=== PATIENT | female | born 1975 | race Caucasian/White ===

== ENCOUNTER 2017-05-21 18:21 | Emergency (ER) | payer MEDICAID, OTHER ==
[~2017-05-21] VITALS: Wt 136.5 kg
[~2017-05-21 18:21] MED LIST: FURO-109 PO
--- NOTE | 2017-05-21 19:31 | ERD ---
ER Documentation Chief Complaint Date/Time DATE: 05/21/17 TIME: 19:26 Chief Complaint SWELLING ON LOWER EXT X1 YEAR, HPI 41-year-old female presents to emergency department for complaints of bilateral lower extremity swelling for one year now, stated that the swelling got worse today. Patient denies any medical problems. Patient denies any trauma no extremity. Patient denies any redness. Patient denies any fever or chills. Patient does verbalize that she usually sits down for long periods of time in the office daily. Patient denies any numbness or tingling. ROS All systems reviewed and are negative except as per history of present illness. Medications Home Meds Active Scripts Furosemide* (Lasix*) 40 Mg Tablet, 40 MG PO DAILY, #10 TAB Prov:JULIO WARNER MD 03/13/16 Allergies Allergies: Coded Allergies: Penicillins (Verified Allergy, Mild, 05/21/17) PMhx/Soc History of Surgery: Yes (tubal ligation X17 years ago) Anesthesia Reaction: No Hx Neurological Disorder: No Hx Respiratory Disorders: No Hx Cardiac Disorders: No Hx Psychiatric Problems: No Hx Miscellaneous Medical Probl: No Hx Alcohol Use: No Hx Substance Use: No Hx Tobacco Use: Yes Smoking Status: Never smoker FmHx Family History: No coronary disease, No diabetes, No other Physical Exam Vitals Vital Signs Date Time Temp Pulse Resp B/P Pulse Ox O2 Delivery O2 Flow Rate FiO2 05/21/17 18:26 98.8 107 17 146/82 97 Physical Exam GENERAL: The patient is well developed and appropriate for usual state of health, in no apparent distress. CHEST: Clear to auscultation bilaterally. There are no rales, wheezes or rhonchi. HEART: Regular rate and rhythm. No murmurs, clicks, rubs or gallops. No S3 or S4. ABDOMEN: Soft, nontender and nondistended. Good bowel sounds. No rebound or guarding. No gross peritonitis. No gross organomegaly or masses. No Chaparro sign or McBurney point tenderness. BACK: No midline or flank tenderness. EXTREMITIES:Noted swelling in bilateral lower extremities, with +1 pitting edema. No redness noted. Noted laceration and dryness of the skin on the also bilateral foot. Equal pulses bilaterally. Grossly neurovascularly intact. NEURO: Alert and oriented. Cranial nerves 2-12 intact. Motor strength in all 4 extremities with 5/5 strength. Sensation grossly intact. Normal speech and gait. SKIN: There is no apparent rash or petechia. The skin is warm and dry. HEMATOLOGIC AND LYMPHATIC: There is no evidence of excessive bruising or lymphedema. No gross cervical, axillary, or inguinal lymphadenopathy. Result Diagram: 05/21/17199905/21/171999 Results 24 hrs Laboratory Tests Test 05/21/17 20:00 White Blood Count 11.610^3/ul Red Blood Count 5.0010^6/ul Hemoglobin 11.9g/dl Hematocrit 40.2% Mean Corpuscular Volume 80.4fl Mean Corpuscular Hemoglobin 23.8pg Mean Corpuscular Hemoglobin Concent 29.6g/dl Red Cell Distribution Width 16.1% Platelet Count 73476^3/UL Mean Platelet Volume 12.2fl Neutrophils % 60.8% Lymphocytes % 27.6% Monocytes % 6.7% Eosinophils % 3.5% Basophils % 0.9% Nucleated Red Blood Cells % 0.0/100WBC Neutrophils # 7.010^3/ul Lymphocytes # 3.210^3/ul Monocytes # 0.810^3/ul Eosinophils # 0.410^3/ul Basophils # 0.110^3/ul Nucleated Red Blood Cells # 0.010^3/ul Sodium Level 140mmol/L Potassium Level 3.9mmol/L Chloride Level 104mmol/L Carbon Dioxide Level 28mmol/L Anion Gap 12 Blood Urea Nitrogen 16mg/dl Creatinine 0.79mg/dl Glucose Level 86mg/dl Calcium Level 8.9mg/dl Total Bilirubin 0.0mg/dl Direct Bilirubin 0.00mg/dl Indirect Bilirubin 0.0mg/dl Aspartate Amino Transf (AST/SGOT) 30IU/L Alanine Aminotransferase (ALT/SGPT) 30IU/L Alkaline Phosphatase 78IU/L Total Protein 7.6g/dl Albumin 4.0g/dl Globulin 3.60g/dl Albumin/Globulin Ratio 1.11 PROCEDURE: US venous lower extremities bilaterally. CLINICAL INDICATION: Bilateral lower extremity swelling. TECHNIQUE: Sonographic evaluation of the lower extremities with compression, augmentation, and color Doppler imaging was performed. COMPARISON: Exam dated 04/14/2014. FINDINGS: Right lower extremity: Common femoral vein: Normal flow. Compressible and augmentable. Proximal superficial femoral vein: Normal flow. Compressible and augmentable. Mid superficial femoral vein: Normal flow. Compressible and augmentable. Distal superficial femoral vein: Normal flow. Compressible and augmentable. Popliteal vein: Normal flow. Compressible and augmentable. Calf veins: Normal flow. There is an anechoic focus the right popliteal fossa measuring 6.3 x 3 cm. Left lower extremity: Common femoral vein: Normal flow. Compressible and augmentable. Proximal superficial femoral vein: Normal flow. Compressible and augmentable. Mid superficial femoral vein: Normal flow. Compressible and augmentable. Distal superficial femoral vein: Normal flow. Compressible and augmentable. Popliteal vein: Normal flow. Compressible and augmentable. Calf veins: Normal flow. IMPRESSION: 1. No evidence of deep vein thrombosis in the lower extremities bilaterally. 2. Right popliteal cyst measuring 6.3 x 3 cm. RPTAT: [facility] .Larry Luna MD, Date Time Electronically viewed and signed by .Larry Luna MD, MD on 05/21/2017 20:00 .P/ CC: [facility] L[facility] Procedures/MDM Medical Decision Making: Patient's lower leg swelling nonspecific at this time, was likely from dependent edema. No DVT noted in the ultrasound, liver function tests are normal, and kidney function test are normal, no symptoms of respiratory distress or chest pain, low suspicion for CHF. There is no suspicion for neurovascular compromise. Patient has intact sensation and circulation of the affected extremity. There is low suspicion for septic arthritis. Patient does not have any fever. Disposition: Home. Patient is given prescription for ibuprofen for pain. [place] for severe pain, 1 week course of Lasix. Patient was advised to elevate the affected area. Patient was advised that if symptoms are worse, numbness, tingling, high fever, unable to move joint, worsening symptoms, to return to emergency department immediately. Otherwise, patient is advised to follow up with the primary care doctor in 5-7 days for reevaluation of symptoms. Departure Diagnosis: Primary Impression: Peripheral edema Condition: Stable Patient Instructions: Peripheral Edema, Bilateral Additional Instructions: Patient is given prescription for ibuprofen for pain. [place] for severe pain, 1 week course of Lasix. Patient was advised to elevate the affected area. Patient was advised that if symptoms are worse, numbness, tingling, high fever, unable to move joint, worsening symptoms, to return to emergency department immediately. Otherwise, patient is advised to follow up with the primary care doctor in 5-7 days for reevaluation of symptoms. ILGIA FRANCISCO NP May 21, 2017 19:31
--- NOTE | 2017-05-21 20:00 | RADRPT ---
PROCEDURE: US venous lower extremities bilaterally. CLINICAL INDICATION: Bilateral lower extremity swelling. TECHNIQUE: Sonographic evaluation of the lower extremities with compression, augmentation, and colo r Doppler imaging was performed. COMPARISON: Exam dated 04/14/2014. FINDINGS: Right lower extremity: Common femoral vein: Normal flow. Compressible and augmentable. Proximal superficial femoral vein: Normal flow. Compressible and augmentable. Mid superficial femoral vein: Normal flow. Compressible and augmentable. Distal superficial femoral vein: Normal flow. Compressible and augmentable. Popliteal vein: Normal flow. Compressible and augmentable. Calf veins: Normal flow. There is an anechoic focus the right popliteal fossa measuring 6.3 x 3 cm. Left lower extremity: Common femoral vein: Normal flow. Compressible and augmentable. Proximal superficial femoral vein: Normal flow. Compressible and augmentable. Mid superficial femoral vein: Normal flow. Compressible and augmentable. Distal superficial femoral vein: Normal flow. Compressible and augmentable. Popliteal vein: Normal flow. Compressible and augmentable. Calf veins: Normal flow. IMPRESSION: 1. No evidence of deep vein thrombosis in the lower extremities bilaterally. 2. Right popliteal cyst measuring 6.3 x 3 cm. RPTAT: HLBP .Larry Luna MD, Date Time Electronically viewed and signed by .Larry Luna MD, MD on 05/21/2017 20:00 .P/
[2017-05-21 20:52] LABS: BASOPHIL # 0.1 10^3/ul (0.0-0.1); BASOPHILS % 0.9 % (0.0-2.0); EOSINOPHILS # 0.4 10^3/ul (0.0-0.5); EOSINOPHILS % 3.5 % (0.0-7.0); HEMATOCRIT 40.2 % (37.0-47.0); HEMOGLOBIN 11.9 g/dl (12.0-16.0); LYMPHOCYTES # 3.2 10^3/ul (0.8-2.9); LYMPHOCYTES % 27.6 % (15.0-51.0); MEAN CORPUSCULAR HEMOGLOBIN 23.8 pg (29.0-33.0); MEAN CORPUSCULAR HGB CONC 29.6 g/dl (32.0-37.0); MEAN CORPUSCULAR VOLUME 80.4 fl (82.0-101.0); MEAN PLATELET VOLUME 12.2 fl (7.4-10.4); MONOCYTE # 0.8 10^3/ul (0.3-0.9); MONOCYTES % 6.7 % (0.0-11.0); NEUTROPHILS % 60.8 % (39.0-77.0); PLATELET COUNT 334 10^3/UL (140-415); RED CELL DISTRIBUTION WIDTH 16.1 % (11.5-14.5); WHITE BLOOD COUNT 11.6 10^3/ul (4.8-10.8)
[2017-05-21 20:58] LABS: ALBUMIN/GLOBULIN RATIO 1.11; CALCIUM 8.9 mg/dl (8.4-10.2); CREATININE 0.79 mg/dl (0.44-1.00); POTASSIUM 3.9 mmol/L (3.5-5.1); TOTAL PROTEIN 7.6 g/dl (6.1-8.1)
[2017-05-21] MEDS ORDERED: HYDR-906 PO (21:28)
[2017-05-21] MEDS ORDERED: FURO-110 PO (21:28)
[2017-05-21] MEDS ORDERED: IBUP400T22 PO (21:28)
[2017-05-21] MEDS ORDERED: CLOT30CR24 TOP (21:32)
[2017-05-21 21:54] VITALS: BP 130/78; PULSE 77; RESP 18; TEMP 98.8
== END 2017-05-21 21:55 | disposition home or self-care (01) ==
LOC: FTE 18:21
DX: R60.0 Localized edema (principal)
CPT/HCPCS: 80053; 85025; 93970; Z7502

== ENCOUNTER 2017-06-23 19:58 | Emergency (ER) | payer MEDICAID ==
[~2017-06-23] VITALS: Ht 157.5 cm; Wt 138.0 kg
[~2017-06-23 19:58] MED LIST changes: +CLOT30CR24 TOP; +FURO-110 PO; +HYDR-906 PO; +IBUP400T22 PO
[2017-06-23 20:41] VITALS: Ht 157.5 cm; Wt 138.0 kg
[2017-06-23 23:54] VITALS: TEMP 99
--- NOTE | 2017-06-23 23:58 | RADRPT ---
PROCEDURE: XR Chest. CLINICAL INDICATION: Dyspnea and sepsis TECHNIQUE: AP Portable chest. COMPARISON: 03/13/2016 chest x-ray FINDINGS: The soft tissues and bones are remarkable for bilateral acromioclavicular osteoarthropathy. No focal infiltrates, masses or effusions are present. The mediastinum demonstrates early vascular calcifica tions of the thoracic aorta and mild cardiomegaly. No pneumothorax is present. IMPRESSION: 1. No radiographic evidence for acute cardiopulmonary disease 2. Mild cardiomegaly and atherosclerotic vascular disease RPTAT: [facility]DC .Sandra Gastelum MD, Date Time Electronically viewed and signed by .Sandra Gastelum MD, on 06/23/2017 23:57 .C/
[2017-06-24] MEDS ORDERED: IPRATROPIUM (NEB) 0.5 MG/2.5 ML AMP NEB STA (00:12)
[2017-06-24] MEDS ORDERED: ALBUTEROL 0.083% (NEB) 2.5 MG/3 ML AMP NEB STA (00:12)
[2017-06-24 00:33] LABS: BASOPHIL # 0.1 10^3/ul (0.0-0.1); BASOPHILS % 0.8 % (0.0-2.0); EOSINOPHILS # 0.6 10^3/ul (0.0-0.5); EOSINOPHILS % 5.3 % (0.0-7.0); HEMATOCRIT 37.4 % (37.0-47.0); LYMPHOCYTES # 2.9 10^3/ul (0.8-2.9); MEAN CORPUSCULAR HEMOGLOBIN 24.2 pg (29.0-33.0); MEAN CORPUSCULAR HGB CONC 29.4 g/dl (32.0-37.0); MEAN CORPUSCULAR VOLUME 82.2 fl (82.0-101.0); MONOCYTE # 0.7 10^3/ul (0.3-0.9); MONOCYTES % 6.9 % (0.0-11.0); NEUTROPHIL # 6.2 10^3/ul (1.6-7.5); NEUTROPHILS % 58.7 % (39.0-77.0); PLATELET COUNT 276 10^3/UL (140-415); RED BLOOD COUNT 4.55 10^6/ul (4.20-5.40); RED CELL DISTRIBUTION WIDTH 15.8 % (11.5-14.5); WHITE BLOOD COUNT 10.5 10^3/ul (4.8-10.8)
[2017-06-24 00:56] LABS: ALANINE AMINOTRANSFERASE 29 IU/L (13-69); ALBUMIN 3.3 g/dl (3.3-4.9); ALBUMIN/GLOBULIN RATIO 0.94; ALKALINE PHOSPHATASE 58 IU/L (42-121); ANION GAP 12 (8-16); ASPARTATE AMINO TRANSFERASE 14 IU/L (15-46); BILIRUBIN,INDIRECT 0.1 mg/dl (0-1.1); BILIRUBIN,TOTAL 0.1 mg/dl (0.2-1.3); BLOOD UREA NITROGEN 20 mg/dl (7-20); CALCIUM 8.9 mg/dl (8.4-10.2); CARBON DIOXIDE 30 mmol/L (21-31); CHLORIDE 104 mmol/L (97-110); CREATININE 0.83 mg/dl (0.44-1.00); GLUCOSE 82 mg/dl (70-220); SODIUM 142 mmol/L (135-144); TOTAL PROTEIN 6.8 g/dl (6.1-8.1)
[2017-06-24 01:07] LABS: TROPONIN-I < 0.012 ng/ml (0.00-0.12)
[2017-06-24 01:16] VITALS: BP 127/73; PULSE 82; RESP 17
--- NOTE | 2017-06-24 01:37 | ERD ---
ER Documentation Chief Complaint Date/Time DATE: 06/24/17 TIME: 01:37 Chief Complaint chest congestion and sob and bilateral feet swelling HPI 41-year-old female with no significant medical history presenting with complaints of shortness of breath. She has felt some congestion in her chest for the past 4 days associated with shortness of breath. She does wake up at night short of breath occasionally. She complains of leg swelling but this has been chronic for her. She has been taking Lasix intermittently for this but drinking a lot of water as well. She denies any calf pain or any unilateral leg pain. No associated chest pain, fever, chills, nausea, vomiting, or dizziness. No recent surgeries. No recent immobilization. No history of blood clots. ROS All systems reviewed and are negative except as per history of present illness. Medications Home Meds Active Scripts Albuterol Sulfate* (Proair HFA*) 8.5 Gm Hfa.aer.ad, 2 PUFF INH Q4H Y for WHEEZING AND SOB, #1 INHALER Prov:KOFI BRIONES MD 06/24/17 Clotrimazole* (Clotrimazole* AF) 1% - 30 Gm Cream.gm., 1 APPLIC TOP BID for 7 Days, TUB Prov:LIGIA FRANCISCO NP 05/21/17 Furosemide* (Lasix*) 20 Mg Tablet, 20 MG PO DAILY, #7 TAB Prov:LIGIA FRANCISCO NP 05/21/17 Hydrocodone/Acetaminophen ([place] 5-325 Tablet) 1 Each Tablet, 1 TAB PO Q6H Y for SEVERE PAIN LEVEL 7-10, #20 TAB Prov:LIGIA FRANCISCO NP 05/21/17 Ibuprofen* (Motrin*) 400 Mg Tab, 400 MG PO Q6H Y for PAIN AND OR ELEVATED TEMP, #30 TAB Prov:LIGIA FRANCISCO NP 05/21/17 Furosemide* (Lasix*) 40 Mg Tablet, 40 MG PO DAILY, #10 TAB Prov:JULIO WARNER MD 03/13/16 Allergies Allergies: Coded Allergies: Penicillins (Verified Allergy, Mild, 05/21/17) PMhx/Soc History of Surgery: Yes (tubal ligation) Anesthesia Reaction: No Hx Neurological Disorder: No Hx Respiratory Disorders: No Hx Cardiac Disorders: No Hx Psychiatric Problems: No Hx Miscellaneous Medical Probl: No Hx Alcohol Use: No Hx Substance Use: No Hx Tobacco Use: Yes Smoking Status: Current every day smoker FmHx Family History: diabetes (Mother) Physical Exam Vitals Vital Signs Date Time Temp Pulse Resp B/P Pulse Ox O2 Delivery O2 Flow Rate FiO2 06/24/17 00:29 85 20 99 21 06/23/17 23:54 99.0 92 18 126/80 98 Room Air 06/23/17 23:54 0 06/23/17 20:41 99.3 104 20 139/71 100 Physical Exam Const: Well-appearing, no apparent distress, no respiratory distress, nontoxic Head: Atraumatic Eyes: Normal Conjunctiva ENT: Normal External Ears, Nose and Mouth. Neck: Full range of motion..~ No meningismus.No JVD Resp: Diffuse expiratory wheezing Cardio: Regular rate and rhythm, no murmurs Abd: Soft, non tender, non distended. Normal bowel sounds Skin: No petechiae or rashes Back: No midline or flank tenderness Ext: Bilateral lower extremity nonpitting edema, no calf tenderness, negative Homans sign Neur: Awake and alert Psych: Normal Mood and Affect Result Diagram: 06/23/17 2341 06/23/17 2341 Results 24 hrs Laboratory Tests Test 06/23/17 23:41 White Blood Count 10.510^3/ul Red Blood Count 4.5510^6/ul Hemoglobin 11.0g/dl Hematocrit 37.4% Mean Corpuscular Volume 82.2fl Mean Corpuscular Hemoglobin 24.2pg Mean Corpuscular Hemoglobin Concent 29.4g/dl Red Cell Distribution Width 15.8% Platelet Count 18964^3/UL Mean Platelet Volume 12.0fl Neutrophils % 58.7% Lymphocytes % 28.0% Monocytes % 6.9% Eosinophils % 5.3% Basophils % 0.8% Nucleated Red Blood Cells % 0.0/100WBC Neutrophils # 6.210^3/ul Lymphocytes # 2.910^3/ul Monocytes # 0.710^3/ul Eosinophils # 0.610^3/ul Basophils # 0.110^3/ul Nucleated Red Blood Cells # 0.010^3/ul Sodium Level 142mmol/L Potassium Level 4.0mmol/L Chloride Level 104mmol/L Carbon Dioxide Level 30mmol/L Anion Gap 12 Blood Urea Nitrogen 20mg/dl Creatinine 0.83mg/dl Glucose Level 82mg/dl Lactic Acid Level 1.2mmol/L Calcium Level 8.9mg/dl Total Bilirubin 0.1mg/dl Direct Bilirubin 0.00mg/dl Indirect Bilirubin 0.1mg/dl Aspartate Amino Transf (AST/SGOT) 14IU/L Alanine Aminotransferase (ALT/SGPT) 29IU/L Alkaline Phosphatase 58IU/L Troponin I < 0.012ng/ml B-Type Natriuretic Peptide 49PG/ML Total Protein 6.8g/dl Albumin 3.3g/dl Globulin 3.50g/dl Albumin/Globulin Ratio 0.94 Current Medications Medications (Trade) Dose Ordered Sig/Sharmaine Route PRN Reason Start Time Stop Time Status Last Admin Dose Admin Albuterol (Proventil 0.083% (Neb)) 5 mg ONCE STAT NEB 06/24/17 00:12 06/24/17 00:14 DC 06/24/17 00:24 Ipratropium [place] (Atrovent 0.02% (Neb)) 0.5 mg ONCE STAT NEB 06/24/17 00:12 06/24/17 00:14 DC 06/24/17 00:25 Procedures/MDM EKG: Rate/Rhythm: Normal Sinus Rhythm QRS, ST, T-waves: No changes consistent w/ acute ischemia Impression: No evidence of ischemia or arrhythmia Chest Xray: IMPRESSION: 1. No radiographic evidence for acute cardiopulmonary disease 2. Mild cardiomegaly and atherosclerotic vascular disease RPTAT: [facility] .Sandra Gastelum MD, Date Time Electronically viewed and signed by .Sandra Gastelum MD, MD on 06/23/2017 23: 57 Labs: CBC: anemia BMP: unremarkable BNP: wnl lactate: wnl Trop: wnl [facility] Patient is presenting with shortness of breath. Vitals were all within normal limits and there is no evidence of respiratory failure. Patient was treated with albuterol with significant improvement in her wheezing and her symptoms. Workup is not suggestive of heart failure, acute coronary syndrome, Sepsis,or pneumonia. Her symptoms are likely secondary bronchitis, likely viral in etiology. I have a low suspicion for pulmonary embolism.Patient will be discharged with a prescription for albuterol inhaler. Return precautions were given. Smoking Cessation Therapy: Pt. was lectured for greater than 3 minutes on the health risks of continued smoking and the benefits of cessation. Departure Diagnosis: Primary Impression: Bronchitis Condition: Stable KOFI BRIONES MD Jun 24, 2017 01:37
[2017-06-24] MEDS ORDERED: ALBU8.5H3 INH (01:38)
== END 2017-06-24 01:48 | disposition home or self-care (01) ==
LOC: E/R 19:58
DX: J20.9 Acute bronchitis, unspecified (principal); F17.210 Nicotine dependence, cigarettes, uncomplicated
CPT/HCPCS: 36415; 71010; 80053; 83605; 83880; 84484; 85025; 87040; 94664; Z7502; Z7610

== ENCOUNTER 2017-08-15 18:47 | Emergency (ER) | payer SELFPAY ==
[~2017-08-15] VITALS: Ht 167.6 cm; Wt 141.7 kg
[~2017-08-15 18:47] MED LIST changes: +ALBU8.5H3 INH
[2017-08-15 18:51] VITALS: Ht 167.6 cm; Wt 141.7 kg
== END 2017-08-15 21:09 | disposition left against medical advice (07) ==
LOC: E/R 18:47
DX: Z53.21 Procedure and treatment not carried out due to patient leaving prior to being seen by health care provider (principal)

== ENCOUNTER 2018-01-01 18:56 | Emergency (ER) | END 2018-01-01 22:35 | disposition home or self-care (01) ==

== ENCOUNTER 2018-03-02 18:14 | Emergency (ER) | END 2018-03-02 21:32 | disposition home or self-care (01) ==

== ENCOUNTER 2018-04-26 16:14 | Emergency (ER) | END 2018-04-26 22:30 | disposition home or self-care (01) ==

== ENCOUNTER 2018-11-26 18:46 | Emergency (ER) | payer SELFPAY ==
[~2018-11-26] VITALS: Ht 162.6 cm; Wt 160.3 kg
[~2018-11-26 18:46] MED LIST changes: -ALBU8.5H3 INH; +BUME0.5T PO; -CLOT30CR24 TOP; -FURO-109 PO; -FURO-110 PO; +HYDR-842 PO; -HYDR-906 PO; -IBUP400T22 PO
[2018-11-26 19:23] VITALS: Ht 162.6 cm; Wt 160.3 kg
[2018-11-26] MEDS ORDERED: FUROSEMIDE 20 MG TAB PO ONE (21:00)
[2018-11-26] MEDS ORDERED: FURO-109 PO (21:29)
--- NOTE | 2018-11-26 21:31 | ERD ---
ER Documentation Chief Complaint Chief Complaint C/O OMAR LEG SWELLING X5 MOTHS, SOB WORSE W/ EXERTION, RT ARM PAIN HPI Patient is a 43-year-old female with no medical problems who presents with bilateral leg swelling. She has shortness of breath as well that is worse at night. She said that she has been dealing with this for the past 6 months. It was worse today so she came to the ER. She is speaking full sentences. She has a cough as well. She stopped her hydrochlorothiazide 3-4 months ago because it was making her pee too much. Upon review of old medical record the patient has multiple visits to the ER for various complaints. She does not currently have a primary doctor. ROS All systems reviewed and are negative except as per history of present illness. Medications Home Meds Active Scripts Furosemide* (Lasix*) 40 Mg Tablet, 40 MG PO DAILY, #20 TAB Prov:MONTY CACERES MD 11/26/18 Discontinued Scripts Bumetanide* (Bumetanide*) 0.5 Mg Tablet, 0.5 MG PO DAILY, #7 TAB Prov:RAÚL RENEE DO 04/26/18 Hydroxyzine Hcl* (Atarax*) 25 Mg Tab, 25 MG PO Q6H PRN for ITCHING, #14 TAB Prov:RAÚL RENEE DO 04/26/18 Allergies Allergies: Coded Allergies: Penicillins (Verified Allergy, Mild, 11/26/18) PMhx/Soc Medical and Surgical Hx: pt denies Medical Hx History of Surgery: No (TUBAL LIGATION 1997) Anesthesia Reaction: No Hx Neurological Disorder: No Hx Respiratory Disorders: No Hx Cardiac Disorders: No Hx Psychiatric Problems: No Hx Miscellaneous Medical Probl: No Hx Alcohol Use: No Hx Substance Use: No Hx Tobacco Use: Yes (4-5 CIGARETTES PER DAY) Smoking Status: Current every day smoker FmHx Family History: diabetes Physical Exam Vitals Vital Signs Date Temp Pulse Resp B/P (MAP) Pulse Ox O2 O2 Flow FiO2 Time Delivery Rate 11/26/18 83 18 122/58 100 Room Air 21:41 (79) 11/26/18 96 20 126/87 100 Room Air 20:45 (100) 11/26/18 99.1 90 19 176/90 96 19:23 (118) Physical Exam Const: No acute distress Head: Atraumatic Eyes: Normal Conjunctiva ENT: Normal External Ears, Nose and Mouth. Neck: Full range of motion. No meningismus. Resp: Clear to auscultation bilaterally Cardio: Regular rate and rhythm, no murmurs Abd: Soft, non tender, non distended. Normal bowel sounds Skin: No petechiae or rashes Back: No midline or flank tenderness Ext: 1+ pitting edema bilaterally Neur: Awake and alert Psych: Normal Mood and Affect Results 24 hrs Current Medications Medications Dose Sig/Sharmaine Start Time Status Last (Trade) Ordered Route PRN Stop Time Admin Dose Reason Admin Furosemide 40 mg ONCE ONCE 11/26/18 DC 11/26/18 (Lasix) PO 21:00 21:11 11/26/18 21:01 Procedures/MDM EKG read by me: Rate/Rhythm: Regular rate and rhythm at a rate of 85 Intervals: Normal Impression: No evidence of ischemia or arrhythmia Chest x-ray shows cardiomegaly per radiology. Smoking Cessation Therapy: Pt. was lectured for greater than 3 minutes on the health risks of continued smoking and the benefits of cessation. Patient is a 43-year-old female presents with bilateral leg swelling. The patient was well-appearing in the emergency department and is in no distress. I do not believe patient requires further workup or admission to the hospital. I do believe that given her obesity that there is cardiomegaly and fluid overload because of that. The patient was given Lasix in the emergency department and will be given a prescription for Lasix which will help her symptoms. However she does need to get a primary doctor and I have given her information for the local clinics. She should follow-up within 1 week. Departure Diagnosis: Primary Impression: Edema Edema type: unspecified Qualified Codes: R60.9 - Edema, unspecified Condition: Fair Patient Instructions: Peripheral Edema, Bilateral Referrals: [facility] YOU HAVE RECEIVED A MEDICAL SCREENING EXAM AND THE RESULTS INDICATE THAT YOU DO NOT HAVE A CONDITION THAT REQUIRES URGENT TREATMENT IN THE EMERGENCY DEPARTMENT. FURTHER EVALUATION AND TREATMENT OF YOUR CONDITION CAN WAIT UNTIL YOU ARE SEEN IN YOUR DOCTORS OFFICE WITHIN THE NEXT 1-2 DAYS. IT IS YOUR RESPONSIBILITY TO MAKE AN APPOINTMENT FOR FOLOW-UP CARE. IF YOU HAVE A PRIMARY DOCTOR --you should call your primary doctor and schedule an appointment IF YOU DO NOT HAVE A PRIMARY DOCTOR YOU CAN CALL OUR PHYSICIAN REFERRAL HOTLINE AT IF YOU CAN NOT AFFORD TO SEE A PHYSICIAN YOU CAN CHOSE FROM THE FOLLOWING [facility] [address] [facility] [address] [facility] [address] [facility] [address] [facility] [facility] [address] [facility]. [facility] [address] Additional Instructions: Call your primary care doctor TOMORROW for an appointment during the next 1 WEEK.Tell the area secretary that you were referred from this facility.See the doctor sooner or return here if your condition worsens before your appointment time. MONTY CACERES MD Nov 26, 2018 21:31
[2018-11-26 21:41] VITALS: BP 122/58; PULSE 83; RESP 18
== END 2018-11-26 21:41 | disposition home or self-care (01) ==
LOC: E/R 18:46
DX: M79.89 Other specified soft tissue disorders (principal); F17.210 Nicotine dependence, cigarettes, uncomplicated
CPT/HCPCS: 71045; 93005

== ENCOUNTER 2018-12-25 11:07 | Inpatient (IN) | payer MEDICAID ==
[~2018-12-25] VITALS: Ht 162.6 cm; Wt 162.0 kg
[~2018-12-25 11:07] MED LIST changes: -BUME0.5T PO; +FURO-109 PO; -HYDR-842 PO
[2018-12-25] MEDS ORDERED: ADENOSINE 2 ML ONE ×2 (11:29→11:37)
[2018-12-25] MEDS: ADENOSINE 6 MG INJ IV STA ×2 (11:30→11:59)
[2018-12-25] MEDS ORDERED: ASPIRIN 325 MG TAB PO STA (11:43)
[2018-12-25] MEDS ORDERED: ADENOSINE 6 MG INJ IV STA (11:43)
[2018-12-25] MEDS ORDERED: IOHEXOL 100 ML ONE (12:53)
[2018-12-25] MEDS ORDERED: SOD CHLORIDE 0.9% 100 ML ONE (12:53)
[2018-12-25] MEDS ORDERED: IOHEXOL 350MG/ML 50 ML BTL ONE (12:54)
[2018-12-25] MEDS ORDERED: ONDANSETRON 4 MG INJ IV PRN ×2 (13:30→15:00)
[2018-12-25] MEDS ORDERED: ACETAMINOPHEN 325 MG TAB PO PRN ×2 (13:30→15:00)
--- NOTE | 2018-12-25 14:17 | ERD ---
ER Documentation Chief Complaint Chief Complaint BILATERAL LEG SWELLING WITH PALPITATION HPI This a very pleasant 43-year-old female who presented to the emergency department with a sudden onset of palpitations that occurred just prior to arrival. The patient indicates she does not have any underlying past medical history. She does state that she believes she has sleep apnea she is been falling asleep during the day specifically at work. She also indicates that for the past several weeks she has been experiencing shortness of breath with exertion and swelling of her bilateral lower extremities. The patient indicated she was at work today when she developed the palpitations became very drowsy. Her boss instructed her to come to the emergency department to be further evaluated. She states she has a strong family history of disease as her mother of a brain aneurysm and heart failure in her early 50s. The patient does smoke tobacco but she states she smokes roughly 1 pack every 4 days. She denies any recent travel. She denies any calf tenderness. She denies a headache or changes in vision. ROS All systems reviewed and are negative except as per history of present illness. Medications Home Meds Discontinued Scripts Furosemide* (Lasix*) 40 Mg Tablet, 40 MG PO DAILY, #20 TAB Prov:MONTY CACERES MD 11/26/18 Allergies Allergies: Coded Allergies: Penicillins (Verified Allergy, Mild, 12/25/18) PMhx/Soc History of Surgery: No (TUBAL LIGATION 1997) Anesthesia Reaction: No Hx Neurological Disorder: No Hx Respiratory Disorders: No Hx Cardiac Disorders: No Hx Psychiatric Problems: No Hx Miscellaneous Medical Probl: No Hx Alcohol Use: No Hx Substance Use: No Hx Tobacco Use: Yes (4-5 CIGARETTES PER DAY) Smoking Status: Current some day smoker Physical Exam Vitals Vital Signs Date Temp Pulse Resp B/P (MAP) Pulse Ox O2 O2 Flow FiO2 Time Delivery Rate 12/25/18 110 18 110/72 98 Room Air 12:15 (85) 12/25/18 100 18 162/70 98 Room Air 12:00 (100) 12/25/18 169 18 133/102 98 Room Air 11:45 (112) 12/25/18 175 18 151/107 98 Room Air 11:20 (122) 12/25/18 98.1 174 18 114/65 97 11:09 (81) Physical Exam Constitutional:Well-developed. Well-nourished. HEENT:Normocephalic. Atraumatic.Pupils were equal round reactive to light. Moist mucous membranes.No tonsillar exudates. Neck: No nuchal rigidity. No lymphadenopathy. No posterior cervical spine tenderness or step-offs. Respiratory: Not using accessory muscles of respiration.Lungs were clear to auscultation bilaterally. No rhonchi. No rales. No wheezing. Cardiovascular: Tachycardic with regular rhythm.No murmurs. No rubs were appreciated.S1, S2 normal. Distal pulses are palpable 2+ bilaterally. GI: Abdomen was obese so exam is limited due to body habitus nontender. Non Distended. No pulsatile abdominal masses or bruits. No rebound. No guarding. Bowel sounds were present and normal. Muscle skeletal: Full range of motion of both the upper and lower extremities bilaterally.Normal muscle tone.No assymetrical calf tenderness or swelling however patient had 2+ pitting edema the bilateral lower extremity's. Skin: No petechia, no purpura. No lesions on the palms or the soles of the feet. No maculopapular rash. NEURO: Patient was alert, awake, orientated x3.No facial droop. Gait observed and normal with no ataxia.Speech had regular rate and rhythm. No focal neurological deficits. Result Diagram: 12/25/18 1130 12/25/18 1130 Results 24 hrs Laboratory Tests Test 12/25/18 11:30 12/25/18 12:19 White Blood Count 9.4 10^3/ul Red Blood Count 5.11 10^6/ul Hemoglobin 12.2 g/dl Hematocrit 42.0 % Mean Corpuscular Volume 82.2 fl Mean Corpuscular Hemoglobin 23.9 pg Mean Corpuscular Hemoglobin Concent 29.0 g/dl Red Cell Distribution Width 15.7 % Platelet Count 270 10^3/UL Mean Platelet Volume 11.7 fl Immature Granulocytes % 0.600 % Neutrophils % 58.8 % Lymphocytes % 29.5 % Monocytes % 8.5 % Eosinophils % 1.9 % Basophils % 0.7 % Nucleated Red Blood Cells % 0.0 /100WBC Immature Granulocytes # 0.060 10^3/ul Neutrophils # 5.5 10^3/ul Lymphocytes # 2.8 10^3/ul Monocytes # 0.8 10^3/ul Eosinophils # 0.2 10^3/ul Basophils # 0.1 10^3/ul Nucleated Red Blood Cells # 0.0 10^3/ul Prothrombin Time 11.9 Sec Prothrombin Time Ratio 0.9 INR International Normalized Ratio 0.87 Activated Partial Thromboplast Time 28.5 Sec D-Dimer 812.87 ng/ml D-Dimer Comment Sodium Level 140 mmol/L Potassium Level 4.3 mmol/L Chloride Level 101 mmol/L Carbon Dioxide Level 32 mmol/L Anion Gap 7 Blood Urea Nitrogen 18 mg/dl Creatinine 0.71 mg/dl Est Glomerular Filtrat Rate mL/min > 60 mL/min Glucose Level 103 mg/dl Calcium Level 9.2 mg/dl Total Bilirubin 0.2 mg/dl Direct Bilirubin 0.00 mg/dl Indirect Bilirubin 0.2 mg/dl Aspartate Amino Transf (AST/SGOT) 13 IU/L Alanine Aminotransferase (ALT/SGPT) 12 IU/L Alkaline Phosphatase 61 IU/L Creatine Kinase 68 IU/L Creatine Kinase Index 1.2 Creatinine Kinase MB (Mass) 0.81 ng/ml Troponin I < 0.012 ng/ml B-Type Natriuretic Peptide 98 PG/ML Total Protein 7.2 g/dl Albumin 3.9 g/dl Globulin 3.30 g/dl Albumin/Globulin Ratio 1.18 Lipase 68 U/L Free Thyroxine Index 2.42 ug/ml Thyroxine (T4) 8.0 ug/dl Triiodothyronine (T3) Uptake 30.2 % Current Medications Medications Dose Sig/Sharmaine Start Time Status Last (Trade) Ordered Route PRN Stop Time Admin Dose Reason Admin Adenosine 2 ml @ ud STK-MED 12/25/18 DC ONCE .ROUTE 11:29 12/25/18 11:30 Adenosine 2 ml @ ud STK-MED 12/25/18 DC ONCE .ROUTE 11:37 12/25/18 11:38 Aspirin 325 mg ONCE STAT 12/25/18 DC 12/25/18 (Aspirin) PO 11:43 12:35 12/25/18 11:45 Adenosine 6 mg ONCE STAT 12/25/18 DC 12/25/18 (Adenosine) IV 11:43 11:30 12/25/18 11:45 Adenosine 12 mg ONCE STAT 12/25/18 DC 12/25/18 (Adenosine) IV 11:43 11:40 12/25/18 11:45 IV Flush 10 ml STK-MED 12/25/18 DC (NS 10 ml) ONCE .ROUTE 12:53 12/25/18 12:54 Sodium 100 ml @ ud STK-MED 12/25/18 DC Chloride ONCE .ROUTE 12:53 12/25/18 12:54 Iohexol 100 ml @ ud STK-MED 12/25/18 DC ONCE .ROUTE 12:53 12/25/18 12:54 Iohexol 50 ml STK-MED 12/25/18 DC (Omnipaque ONCE .ROUTE 12:54 350mg/ ml) 12/25/18 12:55 Ondansetron 4 mg ER BRIDGE 12/25/18 HCl (Zofran PRN IV 13:30 Inj) NAUSEA/VOMITI 12/26/18 13:29 NG 650 mg ER BRIDGE 12/25/18 Acetaminophen PRN PO 13:30 (Tylenol .MILD PAIN 12/26/18 13:29 Tab) 1-3 OR TEMP Procedures/MDM This is a 43-year-old female who presented to the emergency department with palpitations. Patient was admitted placed on chronic monitor continuous pulse oximetry and IV access was attempted by nursing staff. ACLS protocol was followed as the patient had a narrow complex tachycardia consistent with suprav entricular tachycardia. 12 Lead EKG tracing ordered and reviewed by myself showed: Tachycardic 173 bpm and no arrhythmia. SD interval normal. QRS duration shortened at [address] segment elevation No ST segment depression. No changes consistent with acute ischemia. The patient was given 6 mg of adenosine with no changes in her cardiac arrhythmia. The patient was given further dose of 12 mg of adenosine and did have conversion into a sinus tachycardia. Repeat EKG showed sinus tachycardia a t 110 bpm. There is no ST segment elevation or depression. Intervals normal QRS duration was now 72 ms. This was at 11:48 AM. I obtained a chest radiograph and there is no infiltrates or pneumothorax. Patient did state that she was experiencing a chest pressure while she was at work that was in termittent. The chest pressure did return just prior to receiving the adenosine. She received 325 mg of aspirin given her strong history of coronary artery disease I did feel she required admission for serial twelve-lead EKG tracings and cardiac set of enzymes. The patient was a low pretest probability according to the Wells criteria for pulmonary embolism. I obtained a d-dimer and this was elevated therefore CT anterior chest was performed there is no evidence of a pulmonary embolism. Veno us duplex ultrasounds of the lower extremities were negative for DVT. The patient will be admitted in serious condition to the hospitalist Dr. López. Critical Care: Time: 95 minutes Treatments/Evaluations: Close monitoring and treatment of unstable vital signs, cardiorespiratory, and neurologic status, while maintaining tight balance of fluid, respiratory, and cardiac interventions. Time does not include performing any of the above billable procedures. Departure Diagnosis: Primary Impression: Peripheral edema Additional Impressions: SVT (supraventricular tachycardia) Chest pain Chest pain type: unspecified Qualified Codes: R07.9 - Chest pain, unspecified Condition: Serious MATEUS BAR MD Dec 25, 2018 14:17
--- NOTE | 2018-12-25 14:59 | QN ---
Documentation Comment Patient is a high risk for cardiac disease and has had 2 doses of adenosine for SVT. This patient should be admitted as an inpatient and not observation given possibility for decompensation. MONTY CACERES MD Dec 25, 2018 14:59
[2018-12-25] MEDS ORDERED: ZOLPIDEM 5 MG TAB PO PRN (15:00)
[2018-12-25] MEDS: METOPROLOL 25 MG TAB PO SCH ×2 (15:39→21:17)
[2018-12-25] MEDS: DOCUSATE SODIUM 100 MG CAP PO SCH (15:40)
[2018-12-25 18:13] VITALS: PULSE 95
[2018-12-25 18:26] VITALS: BP 116/63; PULSE 89; RESP 18; Ht 162.6 cm; Wt 162.0 kg
[2018-12-25 19:58] VITALS: BP 125/61; PULSE 90; RESP 18
[2018-12-25 20:00] VITALS: PULSE 88
[2018-12-25] MEDS: FAMOTIDINE 20 MG TAB PO SCH (21:17)
[2018-12-26] VITALS (10 sets, daily range): BP systolic 112–135; BP diastolic 62–70; PULSE 68–103; RESP 18–20
--- NOTE | 2018-12-26 02:01 | HP ---
DATE OF ADMISSION: 12/25/2018 PRESENTING COMPLAINT: Lethargy. HISTORY OF PRESENTING COMPLAINT: Ms. Petit is a morbidly obese 43-year-old female who presents to the emergency room today sent in by her boss because she has been having daytime narcolepsy following a slip at her desk at work. The patient says she has been having these episodes of uncontrollable n eeds to take short naps, associated with lethargy for months now and seems to be getting worse. She has had no fever, she does believe she may have sleep apnea, but she has never been worked up for it. She has also been having lethargy and shortness of breath with minimal exertion and lower extremity swelling. Today after falling asleep at work, her boss instructed her to come to the emergency room . In the emergency room, she was found to have SVT with tachycardia and she required adenosine thera py x2 prior to cardioversion. She is being admitted now for further management. Her only past medic al history is hypertension. REVIEW OF SYSTEMS: A 12-point review of systems and pertinent findings are as noted above. HOME MEDICATIONS: The patient takes hydrochlorothiazide only to help with lower extremity swelling. PAST MEDICAL HISTORY: Hypertension. PAST SURGICAL HISTORY: Tubal ligation. ALLERGIES: PENICILLIN. SOCIAL HISTORY: She has cut down her smoking a pack a day to the pack lasting her every 4 days and s he has smoked for about 20 years. She denies alcohol or illicit drug use or marijuana use. PHYSICAL EXAMINATION VITAL SIGNS: When the patient first got in, her temperature was 98.1, pulse rate was 174, respiratio ns 18, blood pressure 114/65 and saturations 97% on room air. After 2 doses of adenosine, her pulse rate is now between 90 and 110. GENERAL: At this time, the patient is alert, oriented, currently in no distress, calm and cooperativ e with exam. She is morbidly obese. HEENT: Head is normocephalic with equal and reactive pupils. Mucous membranes are moist. Posterior pharynx clear of erythema and exudate. NECK: Supple without adenopathy or JVD. CHEST: Clear to auscultation with no tenderness to palpation. CARDIOVASCULAR: Distant heart sounds, S1 and S2, with fairly good rate and rhythm. ABDOMEN: Obese, soft, nondistended with positive bowel sounds in 4 quadrants. EXTREMITIES: Bilateral lower extremities with pitting edema and mild erythema on both shins, but the re is no tenderness. SKIN: Otherwise, is devoid of rash. PSYCHIATRIC: She was calm, cooperative with exam. LABORATORY VALUES: She has a normal white count, normal hemoglobin and normal platelet count. Her b icarbonate levels are a little bit elevated. Basic metabolic profile was unremarkable. LFTs were al so normal. Troponin x1 is negative. Coag profile was unremarkable, but her D-dimer was mildly eleva emi. IMAGING: Lower extremity venous studies showed no evidence of DVT and a chest x-ray showed just mild cardiomegaly. The patient has undergone a CTA of the chest, but the result is pending. ASSESSMENT: This is a 43-year-old female who was sent to the emergency room for assessment of lethar gy and narcolepsy with history of lethargy on exertion and bilateral lower extremity swelling, admitt ed and managed as follows: 1. Supraventricular tachycardia status post adenosine x2. 2. ____ narcolepsy. 3. Morbid obesity. 4. Chronic tobacco use. 5. Bilateral lower extremity swelling, dyspnea on exertion, rule out CHF. 6. Hypertension. PLAN: Admit patient to tele floor. She will need further workup including an echo and ____ for her SVT. We will hold off on diuresis for now until her echo report is available. The patient is advise d to keep lower extremities elevated to help with the edema. She is going to need an outpatient slee p study to assess for possible sleep apnea; however, patient is clinically at risk for obesity hypove ntilation syndrome. The patient is also stating that she would like to undergo weight loss surgery. She has been counseled on the need to quit tobacco use. She said she was trying. We will continue to reinforce. We will get cardiology to see him and provide supportive care as indicated. Further i nterventions will depend on her clinical course. For prophylaxis, she will be on Pepcid and Lovenox. Dictated By: NUNO DIETZ MD, BA/JACKIE Conf#: [id number] DID#: [id number]
[2018-12-26] MEDS: DOCUSATE SODIUM 100 MG CAP PO SCH ×2 (03:20→14:31)
[2018-12-26] MEDS: FAMOTIDINE 20 MG TAB PO SCH ×2 (08:41→20:09)
[2018-12-26] MEDS: METOPROLOL 25 MG TAB PO SCH ×2 (08:42→20:09)
[2018-12-26] MEDS: ASPIRIN 81 MG TAB PO SCH (08:42)
[2018-12-26] MEDS: ENOXAPARIN 40 MG/0.4 ML SYG SC SCH (08:45)
[2018-12-26] MEDS: FUROSEMIDE 40 MG INJ IV SCH (11:19)
--- NOTE | 2018-12-26 14:14 | PN ---
Date/Time of Note Date/Time of Note DATE: 12/26/18 TIME: 13:58 Assessment/Plan VTE Prophylaxis Risk score (from Nsg)>0 risk: 2 SCD applied (from Nsg): No SCD contraindicated: low risk/ambulating Pharmacological prophylaxis: LMWH Lines/Catheters IV Catheter Type (from Nrsg): Saline Lock Assessment/Plan Assessment/Plan 1. Supraventricular tachycardia - resolved s/p adenosine x2. - Cardiology consulted for further recommendations - ECHO ordered and results pending 2. 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 Morbid obesity - lifestyle changes advised - inquiring about bariatric surgery but need for diet, exercise, and insurance prior to procedure. 4. Chronic tobacco use - cessation counseling offered 5. Bilateral lower extremity swelling - will try Lasix and monitor for improvement in pitting edema - discussed with patient most likely due to obesity 6. Hypertension - stable 7. Disposition - Awaiting cardiology input. Will continue monitor for further SVT episodes. Will give dose of Lasix and monitor for improvement in LE swelling Result Diagram: 12/26/18 0615 12/26/18 0615 Results 24hrs Laboratory Tests Test 12/25/18 15:21 12/25/18 20:49 12/25/18 23:22 12/26/18 06:15 Creatine Kinase 64 51 Creatine Kinase 1.2 1.2 Index Creatinine Kinase 0.78 0.60 MB (Mass) Troponin I < 0.012 < 0.012 Urine Color YELLOW Urine Clarity SLIGHTLY CLOUDY A Urine pH 6.0 Urine Specific 1.040 H Rhod[place]ron Urine Ketones NEGATIVE Urine Nitrite NEGATIVE Urine Bilirubin NEGATIVE Urine NEGATIVE Urobilinogen Urine Leukocyte TRACE A Esterase Urine Microscopic 3 RBC Urine Microscopic 7 H WBC Urine Squamous FEW Epithelial Cells Urine Mucus FEW A Urine Hemoglobin 1+ H Urine Glucose NEGATIVE Urine Total NEGATIVE Protein Urine Opiates Negative Screen Urine Negative Barbiturates Urine Negative Amphetamines Screen Urine Negative Benzodiazepines Screen Urine Cocaine Negative Screen Urine Negative Cannabinoids White Blood Count 8.8 Red Blood Count 4.98 Hemoglobin 11.6 L Hematocrit 41.0 Mean Corpuscular 82.3 Volume Mean Corpuscular 23.3 L Hemoglobin Mean Corpuscular 28.3 L Hemoglobin Concen t Red Cell 15.9 H Distribution Width Platelet Count 256 Mean Platelet 11.1 H Volume Immature 0.500 H Granulocytes % Neutrophils % 61.2 Lymphocytes % 27.8 Monocytes % 7.4 Eosinophils % 2.3 Basophils % 0.8 Nucleated Red 0.0 Blood Cells % Immature 0.040 H Granulocytes # Neutrophils # 5.4 Lymphocytes # 2.5 Monocytes # 0.7 Eosinophils # 0.2 Basophils # 0.1 Nucleated Red 0.0 Blood Cells # Sodium Level 140 Potassium Level 4.8 Chloride Level 103 Carbon Dioxide 29 Level Anion Gap 8 Blood Urea 18 Nitrogen Creatinine 0.60 Est Glomerular > 60 Filtrat Rate mL/min Glucose Level 101 Hemoglobin A1c 6.0 H Calcium Level 9.0 Magnesium Level 2.0 Thyroid 1.900 Stimulating Hormone (TSH) Subjective 24 Hr Interval Summary Free Text/Dictation Upon entering room, patient asleep and noted with apneic episodes and snoring. P atient complaining of swelling in legs and feet bilaterally. She also is concerned about discomfort in knees and back as well as dyspnea on exertion. Discussed need for weight loss and mentioned she would like bariatric surgery. Exam/Review of Systems Exam Vitals Vital Signs Date Temp Pulse Resp B/P (MAP) Pulse Ox O2 O2 Flow FiO2 Time Delivery Rate 12/26/18 98 12:01 12/26/18 98.1 18 123/64 98 Room Air 11:24 (83) 12/25/18 2.0 17:36 Exam General: no acute distress Neck: Supple with full range of motion Chest: Nontender Lungs: Clear to auscultation bilaterally no crackles rales or wheezing Heart: Normal S1-S2, Regular rhythm and rate. No murmur, S3, or S4 Abdomen: Soft , nontender, morbidly obses, bowel sounds are present. No guarding no rebound tenderness , No masses or organomegaly. No costovertebral temporal angle mass Extremities: pitting pedal edema bilaterally, swelling of legs Skin: erythema bilateral lower extremities but no warmth Results Results 24hrs Laboratory Tests Test 12/25/18 15:21 12/25/18 20:49 12/25/18 23:22 12/26/18 06:15 Creatine Kinase 64 51 Creatine Kinase 1.2 1.2 Index Creatinine Kinase 0.78 0.60 MB (Mass) Troponin I < 0.012 < 0.012 Urine Color YELLOW Urine Clarity SLIGHTLY CLOUDY A Urine pH 6.0 Urine Specific 1.040 H Rhod[place]ron Urine Ketones NEGATIVE Urine Nitrite NEGATIVE Urine Bilirubin NEGATIVE Urine NEGATIVE Urobilinogen Urine Leukocyte TRACE A Esterase Urine Microscopic 3 RBC Urine Microscopic 7 H WBC Urine Squamous FEW Epithelial Cells Urine Mucus FEW A Urine Hemoglobin 1+ H Urine Glucose NEGATIVE Urine Total NEGATIVE Protein Urine Opiates Negative Screen Urine Negative Barbiturates Urine Negative Amphetamines Screen Urine Negative Benzodiazepines Screen Urine Cocaine Negative Screen Urine Negative Cannabinoids White Blood Count 8.8 Red Blood Count 4.98 Hemoglobin 11.6 L Hematocrit 41.0 Mean Corpuscular 82.3 Volume Mean Corpuscular 23.3 L Hemoglobin Mean Corpuscular 28.3 L Hemoglobin Concen t Red Cell 15.9 H Distribution Width Platelet Count 256 Mean Platelet 11.1 H Volume Immature 0.500 H Granulocytes % Neutrophils % 61.2 Lymphocytes % 27.8 Monocytes % 7.4 Eosinophils % 2.3 Basophils % 0.8 Nucleated Red 0.0 Blood Cells % Immature 0.040 H Granulocytes # Neutrophils # 5.4 Lymphocytes # 2.5 Monocytes # 0.7 Eosinophils # 0.2 Basophils # 0.1 Nucleated Red 0.0 Blood Cells # Sodium Level 140 Potassium Level 4.8 Chloride Level 103 Carbon Dioxide 29 Level Anion Gap 8 Blood Urea 18 Nitrogen Creatinine 0.60 Est Glomerular > 60 Filtrat Rate mL/min Glucose Level 101 Hemoglobin A1c 6.0 H Calcium Level 9.0 Magnesium Level 2.0 Thyroid 1.900 Stimulating Hormone (TSH) Medications Medication Current Medications Ondansetron HCl (Zofran Inj) 4 mg Q6H PRN IV NAUSEA/VOMITING; Start 12/25/18 at 15:00 Aspirin (Aspirin) 81 mg DAILY PO Last administered on 12/26/18at 08:42; Admin Dose 81 MG; Start 12/26/18 at 09:00 Acetaminophen (Tylenol Tab) 650 mg Q6H PRN PO .PAIN 1-3 OR TEMP; Start 12/25/18 at 15:00 Zolpidem Tartrate (Ambien) 5 mg QHS PRN PO .INSOMNIA Last administered on 12/25/18at 21:17; Admin Dose 5 MG; Start 12/25/18 at 15:00 Docusate Sodium (Colace) 100 mg Q12H PO Last administered on 12/26/18at 03:20; Admin Dose 100 MG; Start 12/25/18 at 15:00 Famotidine (Pepcid) 20 mg Q12 PO Last administered on 12/26/18 08:41; Admin Dose 20 MG; Start 12/25/18 at 21:00 Enoxaparin Sodium (Lovenox) 40 mg DAILY SC Last administered on 12/26/18 08:4 5; Admin Dose 40 MG; Start 12/26/18 at 09:00 Metoprolol Tartrate (Lopressor) 25 mg BID PO Last administered on 12/26/18 08:42; Admin Dose 25 MG; Start 12/25/18 at 15:00 Furosemide (Lasix) 40 mg DAILY IV Last administered on 12/26/18at 11:19; Admin Dose 40 MG; Start 12/26/18 at 10:30 ARCADIO CAMARENA MD Dec 26, 2018 14:14
--- NOTE | 2018-12-26 17:20 | RADRPT ---
Echocardiogram Report Patient Name: ADILENE GARCIAPatient ID: [id number] : 1975 (43y 3m)Study Date: 12/26/2018 7:07:18 AM Gender: FAccession #: [id number] Tech: Last Gonzalez [facility] Location: [id number] Ref.Physician: NUNO DIETZ Height(Cm): BSA: Weight(Kg): Quality: Technically Difficult StudyAccount #: Procedures: Echocardiographic Report: Transthoracic echocardiogram with complete 2D, M-Mode, and doppler examination. Indications: SVT. Measurements: 2D/M Mode Doppler Measurement Value Normal Range Measurement Value Normal Range LVIDd 2D 3.7 [ 3.8 - 5.2 ] cm AV Peak Jackson 1.3 [ 100.0 - 170.0 ] cm/sec LVIDs 2D 2.7 [ 2.2 - 3.5 ] cm AV Peak PG 7.0 [ 2.0 - 9.0 ] mmHg LVPWd 2D 0.9 [ 0.6 - 0.9 ] cm LVOT Peak Jackson 1.0 [ 70.0 - 110.0 ] cm/sec IVSd 2D 0.9 [ 0.6 - 0.9 ] cm LVOT Peak PG 4.0 [ 2.0 - 6.0 ] mmHg IVS/LVPW 2D 1.0 ratio MV E Peak Jackson 0.9 [ 60.0 - 130.0 ] cm/sec AoR Diam 2D 2.6 [ 2.3 - 3.1 ] cm MV A Peak Jackson 0.4 [ 100.0 - 120.0 ] cm/sec LA/Ao 2D 1 ratio MV E/A 2.3 [ 0.8 - 1.5 ] ratio LA Dimen 2D 2.6 [ 2.7 - 3.8 ] cm MV Decel Time 173 [ 104 - 258 ] msec Lat E` Jackson 0.1 [ 10.0 - 15.0 ] cm/sec Med E` Jackson 0.1 cm/sec MV E/A 2.3 [ 0.8 - 1.5 ] ratio Findings: Left Ventricle: Overall, normal left ventricular systolic function. Not all segments visualized. Normal left ventricular cavity size. Ejection fraction is visually estimated at 50-55 %. Tissue Doppler/Mitral Doppler indices are consistent with impaired relaxation (Stage I diastolic dysfunction). Pi/[employer] reversed the E and A wave measurements. Right Ventricle: Normal right ventricular size. Normal right ventricular systolic function. Left Atrium: The left atrium is normal in size. Right Atrium: The right atrium is normal in size. Mitral Valve: Normal appearance of the mitral valve. No mitral valve regurgitation is seen. Aortic Valve: Aortic valve not well visualized. No aortic regurgitation. Tricuspid Valve: Normal appearance of the tricuspid valve. Pulmonic Valve: Pulmonic valve not well visualized. Pericardium: Normal pericardium with no significant pericardial effusion. Aorta: Normal aortic root. IVC: The IVC is not well visualized. Pulmonary Artery: Not well visualized. Conclusions: Poor quality study due to large body habitus. Grossly normal systolic function. Grade 1 diastolic dysfunction. No significant valvular abnormalities identified. Electronically Signed By: Germania Frederick 2018-12-26 17:19:34 PDT
--- NOTE | 2018-12-26 17:52 | CONS ---
Assessment/Plan Assessment/Plan Hospital Course (Demo Recall) 43 yo presenting for a doctors note for somnolence, likely has erik, noted to be in SVT. Impression: PSVT, resolved, tolerating metoprolol Hypertension based on BP readings here in the hospital Supermorbid obesity Lower extremity secondary to venous stasis Tobacco abuse Recommendations: Smoking cessation Metoprolol for hypertension and SVT Improve diet -- start by making half of her plate vegetables or salad Discussed realistically that without health insurance at this point that she is very far away from having a gastric bypass, so she needs to start making changes now to improve her health and lose weight Stay as active as possible Consider compression stockings for venous stasis Stable for discharge from a cardiac standpoint Consultation Date/Type/Reason Admit Date/Time Dec 25, 2018 at 14:59 Date of Consultation: Dec 26, 2018 Type of Consult Cardiology Reason for Consultation svt Requesting Provider: ARCADIO CAMARENA MD Date/Time of Note DATE: 12/26/18 TIME: 17:41 Hx of Present Illness 43 yo with morbid obesity and no regular healthcare presents to the ED because she needed a doctor's note. She states that she keeps falling asleep at work and her boss said she could not return without a note. In the ED she had dyspnea and ekg demonstrated SVT, received adenosine with resolution. She snores, and falls asleep frequently during the day. No apnea noted by her son. At baseline she does a bit of walking but is limited by joint and back pain and leg swelling. She has tried to eat better, eats meals from home, but feels frustrated that she keeps gaining weight. She eats no breakfast, eats little to no fruits or vegetables. Last healthcare was with a provider 6 months ago who she saw regarding leg swelling. She has no chest pain. She smokes 4 cigarettes per day, no alcohol or drugs. Mother at 47 of diabetes and an aneurysm, father at 52 of cancer. She wants bariatric surgery but has no health insurance. Constitutional: no complaints Eyes: no complaints ENT: no complaints Respiratory: shortness of breath Cardiovascular: no complaints Gastrointestinal: no complaints Genitourinary: no complaints Musculoskeletal: back pain, bone/joint pain, swelling Skin: no complaints Neurologic: no complaints Endocrine: no complaints Lymphatic: no complaints Psychological: no complaints Immunologic: no complaints Past Medical History Medical History: other (supermorbid obesity) Home Meds Discontinued Scripts Furosemide* (Lasix*) 40 Mg Tablet, 40 MG PO DAILY, #20 TAB Prov:MONTY CACERES MD 11/26/18 Medications Current Medications Ondansetron HCl (Zofran Inj) 4 mg Q6H PRN IV NAUSEA/VOMITING; Start 12/25/18 at 15:00 Aspirin (Aspirin) 81 mg DAILY PO Last administered on 12/26/18at 08:42; Admin Dose 81 MG; Start 12/26/18 at 09:00 Acetaminophen (Tylenol Tab) 650 mg Q6H PRN PO .PAIN 1-3 OR TEMP; Start 12/25/18 at 15:00 Zolpidem Tartrate (Ambien) 5 mg QHS PRN PO .INSOMNIA Last administered on 12/25/18at 21:17; Admin Dose 5 MG; Start 12/25/18 at 15:00 Docusate Sodium (Colace) 100 mg Q12H PO Last administered on 12/26/18at 14:31; Admin Dose 100 MG; Start 12/25/18 at 15:00 Famotidine (Pepcid) 20 mg Q12 PO Last administered on 12/26/18at 08:41; Admin Dose 20 MG; Start 12/25/18 at 21:00 Enoxaparin Sodium (Lovenox) 40 mg DAILY SC Last administered on 12/26/18at 08:45; Admin Dose 40 MG; Start 12/26/18 at 09:00 Furosemide (Lasix) 40 mg DAILY IV Last administered on 12/26/18at 11:19; Admin Dose 40 MG; Start 12/26/18 at 10:30 Metoprolol Tartrate (Lopressor) 50 mg BID PO ; Start 12/26/18 at 21:00 Allergies: Coded Allergies: Penicillins (Verified Allergy, Mild, 12/25/18) Past Surgical History Past Surgical Hx: no surgical history Family History Significant Family History: diabetes Social History Alcohol Use: none Smoking Status: Current every day smoker Drug Use: none Exam/Review of Systems Vital Signs Vitals Vital Signs Date Temp Pulse Resp B/P (MAP) Pulse Ox O2 O2 Flow FiO2 Time Delivery Rate 12/26/18 95 16:01 12/26/18 98.1 18 123/64 98 Room Air 11:24 (83) 12/25/18 2.0 17:36 Exam Constitutional: alert, oriented, other (obese) Psych: nl mood/affect Head: normocephalic, atraumatic Eyes: nl conjunctiva, EOMI, nl lids, nl sclera ENMT: nl external ears & nose, nl lips & teeth Neck: supple; No bruits Respiratory: clear to auscultation, normal air movement Cardiovascular: regular rate and rhythm, nl pulses; No murmurs/extra sounds Gastrointestinal: soft, non-tender, other (very obese) Musculoskeletal: nl extremities to inspection Extremities: normal pulses Neurological: nl mental status, nl speech Skin: nl turgor; No rash or lesions Labs Result Diagram: 12/26/1815 12/26/1815 Results 24hrs Laboratory Tests Test 12/25/18 20:49 12/25/18 23:22 12/26/18 06:15 Creatine Kinase 51 Creatine Kinase Index 1.2 Creatinine Kinase MB (Mass) 0.60 Troponin I < 0.012 Urine Color YELLOW Urine Clarity SLIGHTLY CLOUDY A Urine pH 6.0 Urine Specific [place] 1.040 H Urine Ketones NEGATIVE Urine Nitrite NEGATIVE Urine Bilirubin NEGATIVE Urine Urobilinogen NEGATIVE Urine Leukocyte Esterase TRACE A Urine Microscopic RBC 3 Urine Microscopic WBC 7 H Urine Squamous FEW Epithelial Cells Urine Mucus FEW A Urine Hemoglobin 1+ H Urine Glucose NEGATIVE Urine Total Protein NEGATIVE Urine Opiates Screen Negative Urine Barbiturates Negative Urine Amphetamines Screen Negative Urine Benzodiazepines Screen Negative Urine Cocaine Screen Negative Urine Cannabinoids Negative White Blood Count 8.8 Red Blood Count 4.98 Hemoglobin 11.6 L Hematocrit 41.0 Mean Corpuscular Volume 82.3 Mean Corpuscular Hemoglobin 23.3 L Mean Corpuscular 28.3 L Hemoglobin Concent Red Cell Distribution Width 15.9 H Platelet Count 256 Mean Platelet Volume 11.1 H Immature Granulocytes % 0.500 H Neutrophils % 61.2 Lymphocytes % 27.8 Monocytes % 7.4 Eosinophils % 2.3 Basophils % 0.8 Nucleated Red Blood Cells % 0.0 Immature Granulocytes # 0.040 H Neutrophils # 5.4 Lymphocytes # 2.5 Monocytes # 0.7 Eosinophils # 0.2 Basophils # 0.1 Nucleated Red Blood Cells # 0.0 Sodium Level 140 Potassium Level 4.8 Chloride Level 103 Carbon Dioxide Level 29 Anion Gap 8 Blood Urea Nitrogen 18 Creatinine 0.60 Est Glomerular Filtrat > 60 Rate mL/min Glucose Level 101 Hemoglobin A1c 6.0 H Calcium Level 9.0 Magnesium Level 2.0 Thyroid Stimulating 1.900 Hormone (TSH) Imaging Imaging Initial ekg shows SVT. Repeat ekg shows sinus tachycardia at 110 bpm with left posterior fascicular block Medications Medications Current Medications Ondansetron HCl (Zofran Inj) 4 mg Q6H PRN IV NAUSEA/VOMITING; Start 12/25/18 at 15:00 Aspirin (Aspirin) 81 mg DAILY PO Last administered on 12/26/18 08:42; Admin Dose 81 MG; Start 12/26/18 at 09:00 Acetaminophen (Tylenol Tab) 650 mg Q6H PRN PO .PAIN 1-3 OR TEMP; Start 12/25/18 at 15:00 Zolpidem Tartrate (Ambien) 5 mg QHS PRN PO .INSOMNIA Last administered on 12/25/18 21:17; Admin Dose 5 MG; Start 12/25/18 at 15:00 Docusate Sodium (Colace) 100 mg Q12H PO Last administered on 12/26/18at 14:31; Admin Dose 100 MG; Start 12/25/18 at 15:00 Famotidine (Pepcid) 20 mg Q12 PO Last administered on 12/26/18 08:41; Admin Dose 20 MG; Start 12/25/18 at 21:00 Enoxaparin Sodium (Lovenox) 40 mg DAILY SC Last administered on 12/26/18 08:45; Admin Dose 40 MG; Start 12/26/18 at 09:00 Furosemide (Lasix) 40 mg DAILY IV Last administered on 12/26/18at 11:19; Admin Dose 40 MG; Start 12/26/18 at 10:30 Metoprolol Tartrate (Lopressor) 50 mg BID PO ; Start 12/26/18 at 21:00 LUKAS GAMA Dec 26, 2018 17:52
[2018-12-26] MEDS ORDERED: IPRATROPIUM (NEB) 0.5 MG/2.5 ML AMP HHN PRN (23:30)
[2018-12-26] MEDS ORDERED: LEVALBUTEROL (NEB) 1.25 MG/0.5 ML AMP HHN PRN (23:30)
[2018-12-26] MEDS ORDERED: BENZONATATE 100 MG CAP PO PRN (23:30)
[2018-12-27] VITALS: PULSE 81
[2018-12-27] MEDS: DOCUSATE SODIUM 100 MG CAP PO SCH (02:55)
[2018-12-27 04:00] VITALS: BP 129/80; PULSE 74; PULSE 86; RESP 20
[2018-12-27 07:24] VITALS: BP 129/73; PULSE 94; RESP 18
[2018-12-27 08:01] VITALS: PULSE 90
[2018-12-27] MEDS: FUROSEMIDE 40 MG INJ IV SCH (09:18)
[2018-12-27] MEDS: METOPROLOL 25 MG TAB PO SCH (09:20)
[2018-12-27] MEDS: ASPIRIN 81 MG TAB PO SCH (09:20)
[2018-12-27] MEDS: FAMOTIDINE 20 MG TAB PO SCH (09:20)
[2018-12-27] MEDS: ENOXAPARIN 40 MG/0.4 ML SYG SC SCH (09:38)
--- NOTE | 2018-12-27 10:44 | PN ---
Date/Time of Note Date/Time of Note DATE: 12/27/18 TIME: 10:39 Assessment/Plan VTE Prophylaxis Risk score (from Ns)>0 risk: 3 SCD applied (from Ns): No SCD contraindicated: other Pharmacological prophylaxis: LMWH Lines/Catheters IV Catheter Type (from [facility]): Saline Lock Assessment/Plan Assessment/Plan 1. Supraventricular tachycardia- resolved - Cardiology consultation appreciate and recommending continue on Metoprolol - ECHO resulted noted with EF 50-55% 2. Obstructive sleep apnea - discussed with patient most likely etiology of daytime sleepiness. Did not to lerate CPAP overnight. Encouraged to obtain outpatient sleep study when able 3. Morbid obesity - lifestyle changes advised 4. Chronic tobacco use - cessation counseling offered 5. Bilateral lower extremity swelling - will prescribe compression stockings 6. Hypertension - stable 7. Disposition - Medically stable for discharge home Result Diagram: 12/26/1861412/26/18614 Subjective 24 Hr Interval Summary Free Text/Dictation Patient denies any acute issues. Complaining of persistent swelling of legs bilaterally and discussed need for lifestyle modifications for improvement with ultimate goal of weight loss. Exam/Review of Systems Exam Vitals Vital Signs Date Temp Pulse Resp B/P (MAP) Pulse Ox O2 O2 Flow FiO2 Time Delivery Rate 12/27/18 90 08:01 12/27/18 98.1 18 129/73 97 07:24 (91) 12/26/18 30 23:36 12/26/18 Room Air 20:00 12/25/18 2.0 17:36 Intake and Output 12/26/18 12/26/18 12/27/18 1515:00 23:00 07:00 IntakeIntake Total 1200 ml 600 ml BalanceBalance 1200 ml 600 ml Exam General: no acute distress. answering questions appropriately Neck: Supple with full range of motion Chest: Nontender Lungs: Clear to auscultation bilaterally no crackles rales or wheezing Heart: Normal S1-S2, Regular rhythm and rate. No murmur, S3, or S4 Abdomen: Soft , nontender, morbidly obese, bowel sounds are present. No guarding no rebound tenderness Extremities: pitting pedal edema bilaterally, swelling of legs Skin: erythema bilateral lower extremities but no warmth Medications Medication Current Medications Ondansetron HCl (Zofran Inj) 4 mg Q6H PRN IV NAUSEA/VOMITING; Start 12/25/18 at 15:00 Aspirin (Aspirin) 81 mg DAILY PO Last administered on 12/27/18 09:20; Admin Dose 81 MG; Start 12/26/18 at 09:00 Acetaminophen (Tylenol Tab) 650 mg Q6H PRN PO .PAIN 1-3 OR TEMP; Start 12/25/18 at 15:00 Zolpidem Tartrate (Ambien) 5 mg QHS PRN PO .INSOMNIA Last administered on 12/25/18 21:17; Admin Dose 5 MG; Start 12/25/18 at 15:00 Docusate Sodium (Colace) 100 mg Q12H PO Last administered on 12/27/18 02:55; Admin Dose 100 MG; Start 12/25/18 at 15:00 Famotidine (Pepcid) 20 mg Q12 PO Last administered on 12/27/18 09:20; Admin Dose 20 MG; Start 12/25/18 at 21:00 Enoxaparin Sodium (Lovenox) 40 mg DAILY SC Last administered on 12/27/18 09:38; Admin Dose 40 MG; Start 12/26/18 at 09:00 Furosemide (Lasix) 40 mg DAILY IV Last administered on 12/27/18 09:18; Admin Dose 40 MG; Start 12/26/18 at 10:30 Metoprolol Tartrate (Lopressor) 50 mg BID PO Last administered on 12/27/18 09:20; Admin Dose 50 MG; Start 12/26/18 at 21:00 Levalbuterol (Xopenex Neb) 1.25 mg Q4H RESP THERAPY PRN HHN WHEEZING; Start 12/26/18 at 23:30 Ipratropium [place] (Atrovent 0.02% (Neb)) 0.5 mg Q4H RESP THERAPY PRN HHN WHEEZING; Start 12/26/18 at 23:30 Benzonatate (Tessalon) 200 mg TID PRN PO Cough Last administered on 12/26/18 23:28; Admin Dose 200 MG; Start 12/26/18 at 23:30 ARCADIO CAMARENA MD Dec 27, 2018 10:44
[2018-12-27] MEDS ORDERED: [UNRECOGNIZED DRUG - CODE] MC (10:51)
[2018-12-27] MEDS ORDERED: METO-448 PO (10:51)
[2018-12-27] MEDS ORDERED: NICO-544 TD (10:57)
--- NOTE | 2018-12-27 11:02 | PDOCDIS ---
Discharge Instructions DIAGNOSIS Discharge Diagnosis 1. Supraventricular tachycardia- resolved 2. Obstructive sleep apnea 3. Morbid obesity 4. Chronic tobacco use 5. Bilateral lower extremity swelling, secondary to venous stasis 6. Hypertension CONDITION [id number] Patient Condition: [id number] Stable HOME CARE INSTRUCTIONS: [id number] Diet Instructions: [id number] Low Fat /Cholesterol ACTIVITY: [id number] Activity Restrictions: [id number] No Restrictions FOLLOW UP/APPOINTMENTS Follow-up Plan 1. Establish care with a primary care physician. If you do not get insurance in the next month, it is best to follow up with [facility] for medical care 2. You will need to be referred to a Scrap Preparer for an outpatient sleep study to assess for sleep apnea 3. it is important to quit smoking and you were prescribed nicotine patches to assist with cessation 4. You will need to follow a healthy diet and decrease your portion sizes. Try to increase physical exercise and swimming is the best form due to your knee and back pain since does not put extra pressure on your joints 5. Once you have insurance, you can be referred for bariatric surgery to help with weight loss 6. Take metoprolol twice a day to help control your heart rate 7. If experiencing any concerning symptoms, please go to your closest emergency department REFERRALS Other Referrals Francis Og MD Specialty : pulmonology Comments Office Address [address] [place] [address] Office Kaleb Howe MD Specialty: General Surgery - performs Bariatic Surgery Comments Office Address [id number] [place] [address] Office ARCADIO CAMARENA MD Dec 27, 2018 11:02
[2018-12-27 11:32] VITALS: BP 114/75; PULSE 89; RESP 20
[2018-12-27 12:01] VITALS: PULSE 88
--- NOTE | 2018-12-27 15:15 | DS ---
Date/Time of Note Date/Time of Note DATE: 12/27/18 TIME: 15:11 Discharge Summary Admission/Discharge Info Admit Date/Time Dec 25, 2018 at 14:59 Discharge Date/Time 12/27/18 Discharge Diagnosis 1. Supraventricular tachycardia- resolved 2. Obstructive sleep apnea 3. Morbid obesity 4. Chronic tobacco use 5. Bilateral lower extremity swelling, secondary to venous stasis 6. Hypertension Patient Condition: Stable Consults Cardiology- Dr. Frederick Hx of Present Illness Ms. Petit is a morbidly obese 43-year-old female who presents to the emergency room today sent in by her boss because she has been having daytime narcolepsy following a slip at her desk at work. The patient says she has been having these episodes of uncontrollable needs to take short naps, associated with lethargy for months now and seems to be getting worse. She has had no fever, she does believe she may have sleep apnea, but she has never been worked up for it. She has also been having lethargy and shortness of breath with minimal exertion and lower extremity swelling. Today after falling asleep at work, her boss instructed her to come to the emergency room. In the emergency room, she was found to have SVT with tachycardia and she required adenosine therapy x2 prior to cardioversion. She is being admitted now for further management. Her only past medical history is hypertension. Hospital Course Patient was admitted for close monitoring and cardiology was consulted for evaluation and recommendations. Patient was continued on metoprolol with no further episodes of SVT. Discussion was held about lifestyle modifications and smoking cessation since obesity was contributing to patients current medical issues. Patient was noted with apneic episodes during napping and underwent CPAP trial with low tolerance after 2 hours. Patient was instructed to follow up with PCP and Base Manager for outpatient sleep study. She was provided script for metoprolol, compression stocks, and nicotine patches. She remained in sinus rhythm after admission and experienced no new complications. She was discharged home in stable condition. Home Meds Active Scripts Nicotine* (Nicotine* Patch) 7 mg/day Patch, 1 PATCH TD DAILY for 30 Days, #30 PATCH Prov:ARCADIO CAMARENA MD 12/27/18 Compr.stocking,Thigh,Reg,Large (Compression Thigh Stocking) 1 Each Each, EACH for XL, #1 Prov:ARCADIO CAMAREAN MD 12/27/18 Metoprolol Tartrate* (Lopressor*) 25 Mg Tab, 50 MG PO BID for 30 Days, #60 TAB 1 Refill Prov:ARCADIO CAMARENA MD 12/27/18 Discontinued Scripts Furosemide* (Lasix*) 40 Mg Tablet, 40 MG PO DAILY, #20 TAB Prov:MONTY CACERES MD 11/26/18 Follow-up Plan 1. Establish care with a primary care physician. If you do not get insurance in the next month, it is best to follow up with [facility] for medical care 2. You will need to be referred to a Base Manager for an outpatient sleep study to assess for sleep apnea 3. it is important to quit smoking and you were prescribed nicotine patches to assist with cessation 4. You will need to follow a healthy diet and decrease your portion sizes. Try to increase physical exercise and swimming is the best form due to your knee and back pain since does not put extra pressure on your joints 5. Once you have insurance, you can be referred for bariatric surgery to help with weight loss 6. Take metoprolol twice a day to help control your heart rate 7. If experiencing any concerning symptoms, please go to your closest emergency department Primary Care Provider Care Physician No Primary Time spent on discharge: > 30 minutes ARCADIO CAMARENA MD Dec 27, 2018 15:15
== END 2018-12-27 16:00 | disposition home or self-care (01) | DRG 309 ==
LOC: E/R 11:07 → TEL 13:28 → EDBEDREQ 14:59 → OBSVTOIN 14:59
PROVIDERS: ADMIT Family Medicine; ATTEND Family Medicine
DX: I47.1 Supraventricular tachycardia (principal); Z68.44 Body mass index [BMI] 60.0-69.9, adult; E66.01 Morbid (severe) obesity due to excess calories; F17.200 Nicotine dependence, unspecified, uncomplicated; G47.419 Narcolepsy without cataplexy; G47.33 Obstructive sleep apnea (adult) (pediatric); I87.8 Other specified disorders of veins; I44.5 Left posterior fascicular block; I10 Essential (primary) hypertension; R22.43 Localized swelling, mass and lump, lower limb, bilateral; R06.00 Dyspnea, unspecified
CPT/HCPCS: 71045; 71275; 80048; 80053; 80307; 81001; 82550; 82553; 83036; 83690; 83735; 83880; 84436; 84443; 84479; 84484; 85025; 85378; 85610; 85730; 93005; 93306; 93970; 94660; 96374; G0378; J0153; J1650; J1940; Q9967

== ENCOUNTER 2019-02-15 19:12 | Emergency (ER) | payer MEDICAID, OTHER ==
[~2019-02-15] VITALS: Ht 162.6 cm; Wt 159.1 kg
[~2019-02-15 19:12] MED LIST changes: -FURO-109 PO; +METO-448 PO; +NICO-544 TD; +[UNRECOGNIZED DRUG - CODE] MC
[2019-02-15 19:28] VITALS: Ht 162.6 cm; Wt 159.1 kg
--- NOTE | 2019-02-15 20:34 | ERD ---
ER Documentation Chief Complaint Chief Complaint swelling both legs getting worse. also c/o chest pain HPI This is a 43-year-old woman presenting with peripheral edema, mild dyspnea on exertion, bilateral knee pain. She denies history of asthma but states in the past albuterol has helped with her symptoms. She has been noncompliant with hydrochlorothiazide and denies furosemide use. She denies chest pain, no fevers or chills, no cough, no headache or blurry vision. ROS All systems reviewed and are negative except as per history of present illness. Medications Home Meds Active Scripts Albuterol Sulfate* (Proair HFA*) 8.5 Gm Hfa.aer.ad, 2 PUFF INH Q6H PRN for WHEEZING AND SOB, #1 INHALER Prov:JULIO WARNER MD 02/15/19 Furosemide* (Lasix*) 20 Mg Tablet, 20 MG PO DAILY, #7 TAB Prov:JULIO WARNER MD 02/15/19 Nicotine* (Nicotine* Patch) 7 mg/day Patch, 1 PATCH TD DAILY for 30 Days, #30 PATCH Prov:ARCADIO CAMARENA MD 12/27/18 Compr.stocking,Thigh,Reg,Large (Compression Thigh Stocking) 1 Each Each, EACH MC for XL, #1 Prov:ARCADIO CAMARENA MD 12/27/18 Metoprolol Tartrate* (Lopressor*) 25 Mg Tab, 50 MG PO BID for 30 Days, #60 TAB 1 Refill Prov:ARCADIO CAMARENA MD 12/27/18 Allergies Allergies: Coded Allergies: Penicillins (Verified Allergy, Mild, 12/25/18) PMhx/Soc History of supraventricular tachycardia, morbid obesity, MAGNOLIA, tobacco use, chronic peripheral edema, hypertension History of Surgery: Yes (tubal ligation) Anesthesia Reaction: Yes Hx Neurological Disorder: No Hx Respiratory Disorders: No Hx Cardiac Disorders: Yes (SVT) Hx Psychiatric Problems: No Hx Miscellaneous Medical Probl: No Hx Alcohol Use: No Hx Substance Use: No Hx Tobacco Use: Yes (quit 12/2018) Smoking Status: Former smoker Physical Exam Vitals Vital Signs Date Temp Pulse Resp B/P (MAP) Pulse Ox O2 O2 Flow FiO2 Time Delivery Rate 02/15/19 88 20 98 21 21:07 02/15/19 95 20 146/96 97 Room Air 20:27 (113) 02/15/19 98.2 107 18 148/82 97 19:28 (104) Physical Exam Const: No acute distress, afebrile Resp: Clear to auscultation bilaterally Cardio: Regular rate and rhythm, no murmurs Abd: Soft, non tender, non distended. Normal bowel sounds Skin: No petechiae or rashes Back: No midline or flank tenderness Ext: No cyanosis, 3+ pitting edema bilaterally, calves are symmetrical Neur: Awake and alert x3, no focal deficits or facial asymmetry Psych: Normal Mood and Affect Result Diagram: 02/15/19211202/15/192112 Results 24 hrs Laboratory Tests Test 02/15/19 20:49 02/15/19 21:13 Blood Gas Specimen Source Blood arterial Arterial Blood Date Drawn 02/15/2019 9:00:21 PM Arterial Blood pH (Temp corrected) 7.407 Arterial Blood pCO2 (Temp correct) 45.0 mmhg Arterial Blood pO2 (Temp corrected) 79.7 mmHG Arterial Blood HCO3 27.7 mmol/L Arterial Blood Base Excess 2.5 mmol/L Arterial Blood Oxygen Saturation 95.8 mmHG David Test ACCEPTAB Arterial Blood Gas Puncture Site Left Radial Arterial Blood Carboxyhemoglobin 2.0 % Arterial Blood Methemoglobin 0.3 % Blood Gas A-a O2 Differential 16.1 mmHg Oxyhemoglobin Percent 93.6 % Blood Gas Temperature 37.0 C Blood Gas Actual Respiration Rate 20 Blood Gas Modality ROOM AIR FiO2 21.0 % Blood Gas Notified Whom [facility].H. Blood Gas Notified Time 02/15/2019 9:18:10 PM White Blood Count 9.7 10^3/ul Red Blood Count 4.66 10^6/ul Hemoglobin 11.1 g/dl Hematocrit 38.2 % Mean Corpuscular Volume 82.0 fl Mean Corpuscular Hemoglobin 23.8 pg Mean Corpuscular Hemoglobin Concent 29.1 g/dl Red Cell Distribution Width 15.8 % Platelet Count 261 10^3/UL Mean Platelet Volume 11.0 fl Immature Granulocytes % 0.500 % Neutrophils % 69.7 % Lymphocytes % 20.6 % Monocytes % 7.0 % Eosinophils % 1.7 % Basophils % 0.5 % Nucleated Red Blood Cells % 0.0 /100WBC Immature Granulocytes # 0.050 10^3/ul Neutrophils # 6.7 10^3/ul Lymphocytes # 2.0 10^3/ul Monocytes # 0.7 10^3/ul Eosinophils # 0.2 10^3/ul Basophils # 0.1 10^3/ul Nucleated Red Blood Cells # 0.0 10^3/ul Sodium Level 141 mmol/L Potassium Level 3.7 mmol/L Chloride Level 103 mmol/L Carbon Dioxide Level 32 mmol/L Anion Gap 6 Blood Urea Nitrogen 13 mg/dl Creatinine 0.69 mg/dl Est Glomerular Filtrat Rate mL/min > 60 mL/min Glucose Level 94 mg/dl Calcium Level 9.1 mg/dl Total Bilirubin 0.4 mg/dl Direct Bilirubin 0.00 mg/dl Indirect Bilirubin 0.4 mg/dl Aspartate Amino Transf (AST/SGOT) 13 IU/L Alanine Aminotransferase (ALT/SGPT) 23 IU/L Alkaline Phosphatase 65 IU/L Troponin I < 0.012 ng/ml Total Protein 7.1 g/dl Albumin 3.7 g/dl Globulin 3.40 g/dl Albumin/Globulin Ratio 1.08 Lipase 36 U/L Current Medications Medications Dose Sig/Sharmaine Start Time Status Last (Trade) Ordered Route PRN Stop Time Admin Dose Reason Admin Albuterol 5 mg ONCE STAT 02/15/19 DC 02/15/19 (Proventil INH 20:49 21:07 0.5% (Neb)) 02/15/19 20:52 Furosemide 40 mg ONCE ONCE 02/15/19 DC 02/15/19 (Lasix) PO 21:00 21:27 02/15/19 21:01 Procedures/MDM Patient was placed on vehicle monitor technician rhythm strip revealed a narrow complex tachycardia at 110 bpm, patient was afebrile. EKG performed, read by me: Sinus tachycardia at 110 bpm, normal sinus rhythm, normal axis, no acute ST segment changes, narrow QRS complex, with good R-wave progression in precordial leads. Chest X-ray 1V Interpreted by me: Soft Tissue: No acute abnormalities Bones: No acute abnormalities Mediastinum/Cardiac Silhouette/Lungs: Mild congestion at the bases, no acute infiltrates ABG performed on room air was normal with a pH of 7.41, PCO2 45, PO2 80 I administered furosemide 40 mg p.o. and albuterol 5 mg via nebulizer CBC and electrolytes are normal, liver function test normal, troponin negative Differential diagnoses considered, included but not limited to acute coronary syndrome, pulmonary embolism, aortic dissection, abdominal aortic aneurysm, sepsis, stroke, meningitis, encephalitis, pneumonia, appendicitis, cholecystitis, bowel obstruction, pyelonephritis, nephrolithiasis, cystitis, as well as metabolic, hematologic, and electrolyte abnormalities. As well as abscess, cellulitis, fractures, and dislocations. Patient feels much better at this time, and vital signs are normal, symptoms have improved. I did give strict instructions to return to the ED if symptoms continue or worsen, patient will otherwise follow-up with primary care physician. Patient understood instructions and agreed to plan. Disclaimer: Inadvertent spelling and grammatical errors are likely due to EHR/dictation software use and do not reflect on the overall quality of patient care. Also, please note that the electronic time recorded on this note does not necessarily reflect the actual time of the patient encounter. Departure Diagnosis: Primary Impression: Peripheral edema Additional Impression: Osteoarthritis Osteoarthritis location: knee Osteoarthritis type: primary Laterality: bilateral Qualified Codes: M17.0 - Bilateral primary osteoarthritis of knee Condition: Good JULIO WARNER MD Feb 15, 2019 20:34
[2019-02-15] MEDS ORDERED: ALBUTEROL 0.5% (NEB) 2.5 MG/0.5 ML AMP INH STA (20:49)
[2019-02-15] MEDS ORDERED: FUROSEMIDE 20 MG TAB PO ONE (21:00)
[2019-02-15] MEDS ORDERED: ALBU8.5H8 INH (22:31)
[2019-02-15] MEDS ORDERED: FURO-110 PO (22:31)
[2019-02-15 22:51] VITALS: BP 118/65; PULSE 97; RESP 20
== END 2019-02-15 22:52 | disposition home or self-care (01) ==
LOC: E/R 19:12
DX: M17.0 Bilateral primary osteoarthritis of knee (principal); I10 Essential (primary) hypertension; E66.01 Morbid (severe) obesity due to excess calories; R05 Cough; Z87.891 Personal history of nicotine dependence
CPT/HCPCS: 36415; 36600; 71045; 80053; 82803; 83690; 84484; 85025; 93005; 94664; Z7502; Z7610